=== PATIENT | male | born 1955 ===

== ENCOUNTER 2017-12-01 07:33 | Day surgery (SDC) | payer OTHER ==
[~2017-12-01] VITALS: Ht 172.7 cm; Wt 66.7 kg
[2017-12-01] MEDS ORDERED: METFORMIN850 MG PO (08:42)
[2017-12-01] MEDS ORDERED: ASPIRIN81 MG PO (08:43)
[2017-12-01] MEDS ORDERED: GLIPIZIDE10 MG PO (08:43)
[2017-12-01 14:30] VITALS: BP 115/75
== END 2017-12-01 14:30 | DRG 352 ==
LOC: ORM 07:33
PROVIDERS: ATTEND Surgery
PROC: 0YU60JZ Supplement Left Inguinal Region with Synthetic Substitute, Open Approach (ICD-10-PCS; principal; 2017-12-01)
DX: K40.91 Unilateral inguinal hernia, without obstruction or gangrene, recurrent (principal)
CPT/HCPCS: C9290